=== PATIENT | female | born 1940 | race Caucasian/White ===

== ENCOUNTER → 2019-05-09 | Outpatient (CLI) | payer MEDICARE, OTHER ==
[~2019-05-09] MED LIST: ALLEGRA-D 12 H1 EAC1 PO; ARICEPT 5 MG TAB5 MG PO; CLARITIN10 MG PO; FEMARA2.5 MG PO; LISINOPRIL20 MG PO; METFORMIN HCL500 MG PO; NAPROXEN SODIU220 M2 PO; NORCO 5-325 TA1 EAC1 PO; OMEPRAZOLE40 MG PO; ZOCOR20 MG PO; ZOLOFT50 MG PO
== END ==
LOC: M.PC 02:17
DX: M47.816 Spondylosis without myelopathy or radiculopathy, lumbar region (principal); M51.36 Other intervertebral disc degeneration, lumbar region

== ENCOUNTER → 2019-07-20 | Outpatient (CLI) | payer MEDICARE, OTHER | LOC: M.PC 05:02 | DX: M47.816 Spondylosis without myelopathy or radiculopathy, lumbar region (principal); M51.36 Other intervertebral disc degeneration, lumbar region ==

== ENCOUNTER → 2019-11-07 | Outpatient (CLI) | payer MEDICARE, OTHER | LOC: M.PC 04:54 | DX: M17.0 Bilateral primary osteoarthritis of knee (principal); M11.262 Other chondrocalcinosis, left knee; M76.892 Other specified enthesopathies of left lower limb, excluding foot; Z96.651 Presence of right artificial knee joint ==

== ENCOUNTER 2020-08-27 04:06 | Inpatient (IN) | payer MEDICARE, OTHER ==
[2020-08-27] VITALS (7 sets, daily range): BP systolic 116–155; BP diastolic 63–103
[~2020-08-27] VITALS: Ht 165.1 cm; Wt 83.9 kg
[~2020-08-27 04:06] MED LIST changes: -NORCO 5-325 TA1 EAC1 PO; +NORCO 5-325 TA1 EAC2 PO; +SERTRALINE HCL50 MG PO; -ZOLOFT50 MG PO
[2020-08-27 04:31] LABS: ABSOLUTE BASOPHILS 0.1 thou/uL (0.0-0.2); ABSOLUTE EOSINOPHILS 0.1 thou/uL (0.0-0.7); ABSOLUTE LYMPHOCYTES 1.7 thou/uL (0.8-5.3); ABSOLUTE MONOCYTES 0.4 thou/uL (0.0-1.2); ABSOLUTE NEUTROPHILS 5.7 thou/uL (1.6-8.1); EOSINOPHILS 1.5 %; HEMATOCRIT 38.5 % (37.0-47.0); HEMOGLOBIN 12.8 gm/dL (12.0-15.0); LYMPHOCYTES 20.8 %; MCH 27.1 pg (26.0-34.0); MCHC 33.3 g/dL (28.0-37.0); MCV 81.2 fL (80.0-100.0); MONOCYTES 5.5 %; MPV 7.2 fl. (7.2-11.1); NUCLEATED RBCS 0 /100WBC; PLATELET COUNT* 221 thou/uL (150-400); POLYS 71.2 %; RBC 4.74 mil/uL (4.20-5.00); RDW-CV 15.1 % (10.5-14.5)
[2020-08-27 04:39] LABS: CALCIUM 9.1 mg/dL (8.5-10.1); CREATININE 1.2 mg/dL (0.6-1.3); POTASSIUM 4.2 mmol/L (3.5-5.1)
[2020-08-27 04:41] LABS: APTT 25.8 Seconds (25.0-31.3); PROTIME 10.8 Seconds (9.20-11.50)
[2020-08-27 04:49] LABS: ALBUMIN 3.8 g/dL (3.4-5.0); TOTAL BILIRUBIN 0.3 mg/dL (<0.1-1.0); TOTAL PROTEIN 7.6 g/dL (6.4-8.2)
--- NOTE | 2020-08-27 09:58 | EKG ---
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1940 Requested By: Marilin Somers Order Number: [id number] MD: Gurinder Segal Measurements Intervals [place] Rate: 143 P: ID: QRS: 66 QRSD: 141 T: -28 QT: 333 QTc: 514 Interpretive Statements Extreme tachycardia with wide complex, consider psvt with aberrancy RBBB No previous ECG available for comparison Electronically Signed On 08-27-2020 9:57:57 CDT by Gurinder Segal [email or web address] <ELECTRONICALLY SIGNED> By: Gurinder Segal MD, [facility] 08/27/20 0957 0413 0413 Gurinder Segal MD, [facility] /EPI
--- NOTE | 2020-08-27 13:39 | EKG ---
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
--- NOTE | 2020-08-27 14:36 | CON ---
[address] [address] CONSULTATION Name: FALLON MATAMOROS Room: [place] [address] ADM IN M.R.#: [id number] Admission: 08/27/20 Attend Phys: Bennie Garg, Discharge: Date of : 42 Report #: [id number] THIS REPORT FOR: //name// cc: Aashish Dominguez MD, Dean L. MD ~ THIS REPORT FOR: //name// DATE OF SERVICE: 08/27/2020 CARDIOLOGY CONSULTATION HISTORY OF PRESENT ILLNESS: The patient is a 80-year-old single white female who I was asked to see in the Emergency Room today after she complained of back pain and was noted to be in atrial fibrillation. The patient notes she has had a history of an irregular heartbeat. Apparently, she was on warfarin in the past. However, she has had no previous cardiac evaluation. Apparently, she has been at [facility] for the past several months because she cannot care for herself. She has had a long history of back pain with previous radiofrequency ablation. She currently uses a walker. Apparently, 2 days ago. She is at the [place] and fell and injured her back. She was brought to the Emergency Room this morning when she was noted to have a rapid heartbeat. She was found to be in atrial fibrillation. She is admitted for further evaluation and treatment. She denies a history of chest pain, shortness of breath, lower extremity edema, lightheadedness. PAST MEDICAL HISTORY: Significant for knee surgery, cholecystectomy, hysterectomy, breast cancer, having had surgery and chemotherapy. She has a history of hypertension, glucose intolerance. MEDICATIONS: At the [facility] include Aricept, metformin, omeprazole, Zoloft, simvastatin, lisinopril. ALLERGIES: SHE HAS A PREVIOUS INTOLERANCE TO SULFA DRUGS. FAMILY HISTORY: Negative for heart disease. SOCIAL HISTORY: She is . Quit smoking years ago, rarely drinks alcohol. REVIEW OF SYSTEMS: No history of stroke. She had asthma as a child. No history of liver disease, heart murmur, kidney disease, psychiatric illness or chronic skin condition. PHYSICAL EXAMINATION: GENERAL: Revealed an elderly female, who appeared in no distress. VITAL SIGNS: She had a blood pressure of 110/70, pulse is 110. [place] [address] CONSULTATION Name: FALLON MATAMOROS Room: [address]#: [id number] Admission: 08/27/20 Attend Phys: Bennie Garg, Discharge: Date of : 42 Report #: [id number] HEENT: She was anicteric. Conjunctivae are pink. Mucous membranes moist. NECK: Veins do not appear distended. CHEST: Clear to auscultation. No carotid bruits. CARDIOVASCULAR: Irregular, tachycardia. No significant murmur. ABDOMEN: Soft. EXTREMITIES: Had no edema. SKIN: Cool and dry. NEUROLOGIC: Nonfocal. DIAGNOSTIC STUDIES: Her ECG showed atrial fibrillation, increased ventricular response rate, and a right bundle branch block. Her workup last night, she had a portable chest x-ray that showed normal heart size, clear lung huggins. LABORATORY WORK: Sodium 138, creatinine 1.2. Troponin 0.06. BNP 2144, hemoglobin 12.8. IMPRESSION AND RECOMMENDATIONS: 1. Atrial fibrillation. Onset unclear. I would recommend starting sotalol. I would aim for rate control. I would recommend starting anticoagulation. 2. History of breast cancer. 3. Chronic back pain following a fall. 4. Diabetes. 5. Hypertension. The patient is on SUSANNA inhibitor. 6. Hyperlipidemia. The patient is on a statin drug. 7. Previous tobacco abuse. <ELECTRONICALLY SIGNED> By: Gurinder Segal MD, FACC 08/27/20 1436 1132 [id number] Segal MD, FACC /nt
--- NOTE | 2020-08-27 16:29 | 2DMMODE ---
[place] [address] 2 D/M-MODE ECHOCARDIOGRAM Name: FALLON MATAMOROS MADHU Room: [address] IN .R.#: [id number] Admission: 08/27/20 Attend Phys: Bennie Genao Discharge: Date of : 42 Date of Service: 08/27/20 1629 Report #: [id number] THIS REPORT FOR: cc: Aashish Dominguez MD, Dean L. MD Blick, David R. MD [facility] ~ ADDENDUM APPROVED REPORT Study performed: 08/27/2020 15:37:55 EXAM: Comprehensive 2D, Doppler, and color-flow Echocardiogram Patient Location: Bedside BSA: 1.91 HR: 138 bpm BP: 88/44 mmHg Other Information Study Quality: Good Indications Atrial Fibrillation 2D Dimensions IVSd: 14.14 (7-11mm) LVOT Diam: 19.14 (18-24mm) LVDd: 33.07 mm PWd: 11.84 (7-11mm) Ascending Ao: 34.97 (22-36mm) LVDs: 28.22 (25-40mm) Aortic Root: 29.27 mm Volumes Left Atrial Volume (Systole) LA ESV Index: 35.10 mL/m2 Aortic Valve AoV Peak Dash.: 1.00 m/s AO Peak Gr.: 4.02 mmHg LVOT Max P.16 mmHg AO Mean Gr.: 2.19 mmHg LVOT Mean P.28 mmHg LVOT Max V: 1.24 m/s AO V2 VTI: 11.55 cm LVOT Mean V: 0.83 m/s CM (VTI): 4.38 cm2 LVOT V1 VTI: 17.60 cm Mitral Valve E/A Ratio: 1.63 [place] [address] 2 D/M-MODE ECHOCARDIOGRAM Name: FALLON MATAMOROS Room: [address] IN ..#: [id number] Admission: 08/27/20 Attend Phys: Bennie Genao Discharge: Date of : 42 Date of Service: 08/27/20 1629 Report #: [id number] MV Decel. Time: 221.70 ms MV E Max Dash.: 0.64 m/s MV PHT: 64.29 ms MVA (PHT): 3.42 cm2 TDI E/Lateral E': 4.92 E/Medial E': 4.92 Medial E' Dash.: 0.13 m/s Lateral E' Dash.: 0.13 m/s Pulmonary Valve PV Peak Dash.: 0.74 m/s PV Peak Gr.: 2.21 mmHg Tricuspid Valve RAP Estimate: 20.00 mmHg TR Peak Gr.: 21.30 mmHg RVSP: 41.30 mmHg PA Pressure: 41.30 mmHg Left Ventricle The left ventricle is normal size. There is normal LV segmental wall motion. Mild concentric left ventricular hypertrophy. Left ventricular systolic function is normal. The left ventricular ejection fraction is within the normal range. LVEF is 60-65%. Right Ventricle The right ventricle is normal size. The right ventricular systolic function is normal. Atria Left atrium is mildly dilated. The right atrium size is normal. Aortic Valve The Aortic valve is sclerotic. No aortic regurgitation is present. There is no aortic valvular stenosis. Mitral Valve There is mitral annular calcification. Mild mitral regurgitation. No evidence of mitral valve stenosis. Tricuspid Valve The tricuspid valve is normal in structure. Mild tricuspid regurgitation. Pulmonic Valve The pulmonary valve is normal in structure. There [place] [address] 2 D/M-MODE ECHOCARDIOGRAM Name: FALLON MATAMOROS Room: [address]#: [id number] Admission: 08/27/20 Attend Phys: Bennie Gneao Discharge: Date of : 42 Date of Service: 08/27/20 1629 Report #: [id number] valvular regurgitation. Great Vessels The aortic root is normal in size. IVC is normal in size and collapses >50% with inspiration. Pericardium There is no pericardial effusion. <Conclusion> Mild concentric left ventricular hypertrophy. LVEF is 60-65%. Left atrium is mildly dilated. The Aortic valve is sclerotic. Mild mitral regurgitation. <ELECTRONICALLY SIGNED> By: Gurinder Segal MD, FACC 08/27/20 1629 28 28 Gurinder Segal MD, FACC /INF
[2020-08-28] VITALS: BP 102/48
[2020-08-28 04:00] VITALS: BP 134/64
[2020-08-28 08:00] VITALS: BP 128/80
--- NOTE | 2020-08-28 09:56 | EKG ---
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: : 1940 Requested By: Gurinder Segal Order Number: [id number] Apurva MD: Gurinder Segal Measurements Intervals [place] Rate: 95 P: 8 NC: 137 QRS: -14 QRSD: 150 T: -18 QT: 382 QTc: 481 Interpretive Statements atrial fibrillation Right bundle branch block Compared to ECG 08/27/2020 04:44:41 rate has slowed Electronically Signed On 08-28-2020 9:56:26 CDT by Gurinder Segal [email or web address] <ELECTRONICALLY SIGNED> By: Gurinder Segal MD, [facility] 08/28/20 0956 0843 0843 Gurinder Segal MD, [facility] /EPI
[2020-08-28 12:00] VITALS: BP 134/86
[2020-08-28 16:00] VITALS: BP 128/59
[2020-08-28 20:40] VITALS: BP 141/84
[2020-08-29] VITALS (7 sets, daily range): BP systolic 110–135; BP diastolic 45–88
[2020-08-29 04:23] LABS: HEMATOCRIT 34.3 % (37.0-47.0); HEMOGLOBIN 11.6 gm/dL (12.0-15.0); MCH 27.4 pg (26.0-34.0); MCHC 33.8 g/dL (28.0-37.0); MCV 81.1 fL (80.0-100.0); MPV 7.3 fl. (7.2-11.1); RBC 4.23 mil/uL (4.20-5.00); RDW-CV 14.5 % (10.5-14.5); WBC 6.6 thou/uL (4.0-11.0)
[2020-08-29 04:34] LABS: CALCIUM 9.2 mg/dL (8.5-10.1); CREATININE 1.1 mg/dL (0.6-1.3); MAGNESIUM 1.4 mg/dL (1.8-2.4); POTASSIUM 3.8 mmol/L (3.5-5.1)
[2020-08-29] MEDS ORDERED: ELIQUIS5 MG PO (08:29)
[2020-08-29] MEDS ORDERED: LANOXIN 0.25M0.25 M1 PO (08:29)
[2020-08-29] MEDS ORDERED: NORCO 5-325 TA1 EAC2 PO (08:29)
[2020-08-29] MEDS ORDERED: PACERONE 200 M200 M1 PO (08:29)
[2020-08-29] MEDS ORDERED: CARDIZEM CD120 MG PO (08:29)
--- NOTE | 2020-08-29 10:25 | EKG ---
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1940 Requested By: Gurinder Segal Order Number: [id number] Apurva MD: Gurinder Segal Measurements Intervals [place] Rate: 125 P: [place]: QRS: 5 QRSD: 150 T: -37 QT: 371 QTc: 535 Interpretive Statements Junctional tachycardia Right bundle branch block ST depr, consider ischemia, inferior leads Compared to ECG 08/28/2020 08:43:03 Junctional tachycardia now present Atrial fibrillation no longer present Electronically Signed On 08-29-2020 10:24:59 CDT by Gurinder Segal [email or web address] <ELECTRONICALLY SIGNED> By: Gurinder Segal MD, FACC 08/29/20 1024 0757 0757 Gurinder Segal MD, [facility] /EPI
[2020-08-30] VITALS: BP 124/66
[2020-08-30 04:00] VITALS: BP 128/78
[2020-08-30 08:00] VITALS: BP 116/70; BP 170/77
--- NOTE | 2020-08-30 10:50 | EKG ---
[place] [address] ELECTROCARDIOGRAM REPORT Name: FALLON MATAMOROSNE Room: [address] ADM IN M.R.#: [id number] Admission: 08/27/20 Attend Phys: Bennie Genao Discharge: Date of : 42 Date of Service: 08/30/20 0931 Report #: [id number] THIS REPORT FOR: //name// [facility] Test Date: 2020-08-30 Test Time: 09:31:42 Pat Name: FALLON MATAMOROS Department: Room: [address] Gender: F Police Guard: IVY : 1940 Requested By: Gurinder Segal Order Number: [id number] MD: Dixon Sarkar Measurements Intervals [place] Rate: 63 P: [place]: QRS: -10 QRSD: 148 T: -46 QT: 410 QTc: 420 Interpretive Statements Atrial fibrillation Right bundle branch block ST depr, consider ischemia, anterolateral lds Compared to ECG 08/29/2020 07:57:51 Junctional tachycardia no longer present Possible ischemia still present Electronically Signed On 08-30-2020 10:50:45 CDT by Dixon Sarkar [email or web address] <ELECTRONICALLY SIGNED> By: Lisa Sarkar MD, [facility] 08/30/20 1050 0 0 Lisa Sarkar MD, [facility] /EPI
[2020-08-30 12:00] VITALS: BP 118/67
== END 2020-08-30 14:15 | DRG 309 ==
LOC: M.ERS 04:06 → M.TBA-ER 05:42 → M.2W 15:22
PROVIDERS: Internal Medicine; Personal Emergency Response Attendant; ADMIT Family Medicine; ATTEND Family Medicine
DX: I48.91 Unspecified atrial fibrillation (principal); D68.69 Other thrombophilia; Z20.828 Contact with and (suspected) exposure to other viral communicable diseases; I10 Essential (primary) hypertension; F03.90 Unspecified dementia, unspecified severity, without behavioral disturbance, psychotic disturbance, mood disturbance, and anxiety; E78.5 Hyperlipidemia, unspecified; E11.9 Type 2 diabetes mellitus without complications; G89.29 Other chronic pain; J30.2 Other seasonal allergic rhinitis; M54.9 Dorsalgia, unspecified; Z79.899 Other long term (current) drug therapy; Z90.49 Acquired absence of other specified parts of digestive tract; Z85.3 Personal history of malignant neoplasm of breast; Z88.2 Allergy status to sulfonamides; Z91.041 Radiographic dye allergy status; Z92.21 Personal history of antineoplastic chemotherapy

== ENCOUNTER 2021-01-19 17:29 | Emergency (ER) | payer MEDICARE, OTHER ==
[~2021-01-19] VITALS: Ht 165.1 cm; Wt 63.0 kg
[~2021-01-19 17:29] MED LIST changes: +CARDIZEM CD120 MG PO; +ELIQUIS5 MG PO; +LANOXIN 0.25M0.25 M1 PO; +PACERONE 200 M200 M1 PO
[2021-01-19 17:56] LABS: HEMATOCRIT 38.7 % (37.0-47.0); HEMOGLOBIN 12.9 gm/dL (12.0-15.0); MCHC 33.2 g/dL (28.0-37.0); MCV 81.2 fL (80.0-100.0); MPV 7.2 fl. (7.2-11.1); NUCLEATED RBCS 0 /100WBC; PLATELET COUNT* 175 thou/uL (150-400); RBC 4.77 mil/uL (4.20-5.00); RDW-CV 15.1 % (10.5-14.5); WBC 13.3 thou/uL (4.0-11.0)
[2021-01-19 18:04] LABS: CALCIUM 9.1 mg/dL (8.5-10.1); POTASSIUM 3.9 mmol/L (3.5-5.1)
[2021-01-19 18:08] LABS: ALBUMIN 4.1 g/dL (3.4-5.0); TOTAL BILIRUBIN 0.3 mg/dL (<0.1-1.0); TOTAL PROTEIN 7.8 g/dL (6.4-8.2)
[2021-01-19 18:27] LABS: ABSOLUTE EOSINOPHILS 0.4 thou/uL (0.0-0.7); ABSOLUTE LYMPHOCYTES 0.9 thou/uL (0.8-5.3); PLATELET ESTIMATE ADEQUATE
[2021-01-19 19:52] VITALS: BP 150/70
--- NOTE | 2021-01-21 10:44 | EKG ---
[place] [address] ELECTROCARDIOGRAM REPORT Name: FALLON MATAMOROS Room: [facility]#: [id number] Admission: 01/19/21 Attend Phys: Discharge: 01/19/21 Date of : 42 Date of Service: 01/19/21 174 Report #: [id number] THIS REPORT FOR: //name// 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 01/21/21 1043 1744 1744 Gurinder Segal MD, [facility] /EPI
== END 2021-01-19 19:53 | disposition home or self-care (01) ==
LOC: M.ERS 17:29
PROVIDERS: Family Medicine
DX: R11.2 Nausea with vomiting, unspecified (principal); I10 Essential (primary) hypertension; E11.9 Type 2 diabetes mellitus without complications; Z88.2 Allergy status to sulfonamides; Z91.041 Radiographic dye allergy status; Z90.49 Acquired absence of other specified parts of digestive tract; Z85.3 Personal history of malignant neoplasm of breast; Z90.11 Acquired absence of right breast and nipple